=== PATIENT | female | born 1995 | race Caucasian/White ===

== ENCOUNTER → 2020-12-10 | Outpatient (CLI) | payer OTHER ==
--- NOTE | 2020-12-11 03:14 | MR ---
EXAMINATION TYPE: MR lumbar spine wo con DATE OF EXAM: 12/10/2020 COMPARISON: None HISTORY: Low back pain that goes into left and right buttocks. Multiplanar multiecho imaging of the lumbar spine was performed without contrast. The lumbar vertebra have normal alignment. Disc spaces are fairly normal. There is no compression fra cture. Sacroiliac joints are intact. There is no evidence of bony destructive process. There is no sp inal stenosis. Neural foramina are widely patent. There is no lumbar paraspinal mass. There is rudime ntary disc at S1-S2. IMPRESSION: Normal MR scan of the lumbar spine.
== END | disposition home or self-care (01) ==
LOC: RADMRIMAIN 15:44
PROVIDERS: ATTEND Orthopaedic Surgery
DX: M54.5 Low back pain (principal)
CPT/HCPCS: 72148

== ENCOUNTER → 2021-10-07 | Outpatient (CLI) | payer OTHER ==
--- NOTE | 2021-10-07 16:47 | US ---
EXAMINATION TYPE: US venous doppler duplex LE LT DATE OF EXAM: 10/07/2021 4:25 PM COMPARISON: NONE CLINICAL HISTORY: L03.116 CELLULITIS LT LOWER LEG,O22.00 VARICOSE VEINS PREGNA. Patient is 3rd [address] . Palpable at distal thigh with redness. SIDE PERFORMED: Left TECHNIQUE: The lower extremity deep venous system is examined utilizing real time linear array sonog sesar with graded compression, doppler sonography and color-flow sonography. VESSELS IMAGED: Common Femoral Vein Deep Femoral Vein Greater Saphenous Vein * Femoral Vein Popliteal Vein Small Saphenous Vein * Proximal Calf Veins (* superficial vessels) Grayscale, color doppler, spectral doppler imaging performed of the deep veins of the lower extremiti es. There is normal flow, compressibility, vascular waveforms. Left Leg: Negative for DVT. At area of palpable, prominent superficial veins seen with internal ech oes at a small portion, noncompressible. IMPRESSION: No evidence of deep vein thrombosis of the left lower extremity.
== END | disposition home or self-care (01) ==
LOC: RADUSWWP 15:47
PROVIDERS: ATTEND Nurse Practitioner Family
DX: L03.116 Cellulitis of left lower limb (principal); O22.00 Varicose veins of lower extremity in pregnancy, unspecified trimester; R22.42 Localized swelling, mass and lump, left lower limb

== ENCOUNTER → 2023-12-25 | Outpatient (CLI) | payer OTHER ==
--- NOTE | 2023-12-25 21:25 | MR ---
EXAMINATION TYPE: MR lumbar spine wo con DATE OF EXAM: 12/25/2023 COMPARISON: 12/10/2020 HISTORY: Low back pain into Right thigh TECHNIQUE: Multiplanar, multisequence images of the lumbar spine were acquired without IV contrast. Findings: The lumbar vertebral segments are normal in height and alignment is no fracture or subluxation. The disc spaces are well-maintained in height and signal intensity and there is no significant degene rative disease. There are no focal disc protrusions or herniations. The facet joints are intact. The conus medullaris and cauda equina appear normal. There is no spinal stenosis or neural foraminal stenosis. The paraspinal soft tissues are unremarkable. The visualized sacrum and SI joints normal. There is been no interval change IMPRESSION: No significant abnormality seen with no interval change. There is no lumbar spine fracture, malalignm ent, disc herniation, spinal stenosis or neural foraminal stenosis.
== END | disposition home or self-care (01) ==
LOC: RADMRIMAIN 20:15
PROVIDERS: ATTEND Orthopaedic Surgery
DX: M54.50 Low back pain, unspecified (principal)
CPT/HCPCS: 72148